=== PATIENT | male | born 1955 | race Caucasian/White ===

== ENCOUNTER 2019-12-09 07:51 | Day surgery (SDC) | payer OTHER ==
[~2019-12-09] VITALS: Ht 175.3 cm; Wt 98.9 kg
[~2019-12-09 07:51] MED LIST: AMLO5 PO; Aspir 8181 MG PO; CARV3.125 PO; COQ-10100 MG PO; DIAZ10 PO; DIAZ5 PO; EZET10 PO; FOLI1 PO; IBUP400 PO; LISI20 PO; MAGNESIUM OXID500 MG PO; METF500 PO; METTREX2.5 PO; NITR.4SL SL; SILD50TA PO
== END 2019-12-09 09:59 | disposition home or self-care (01) ==
LOC: ORSCSDS 07:51
PROVIDERS: Internal Medicine Gastroenterology
PROC: 0DBH8ZX Excision of Cecum, Via Natural or Artificial Opening Endoscopic, Diagnostic (ICD-10-PCS; principal; 2019-12-09 09:15)
PROC: 0DBK8ZX Excision of Ascending Colon, Via Natural or Artificial Opening Endoscopic, Diagnostic (ICD-10-PCS; principal; 2019-12-09 09:15)
DX: Z12.11 Encounter for screening for malignant neoplasm of colon (principal); D12.0 Benign neoplasm of cecum; D12.2 Benign neoplasm of ascending colon; K57.30 Diverticulosis of large intestine without perforation or abscess without bleeding; K64.1 Second degree hemorrhoids; I10 Essential (primary) hypertension; I25.2 Old myocardial infarction; E11.9 Type 2 diabetes mellitus without complications; E78.5 Hyperlipidemia, unspecified; Z79.899 Other long term (current) drug therapy; Z79.84 Long term (current) use of oral hypoglycemic drugs
CPT/HCPCS: 82947; 88305; J2704; J7120

== ENCOUNTER 2023-01-10 06:57 | Day surgery (SDC) | payer MEDICARE ==
[~2023-01-10] VITALS: Ht 177.8 cm; Wt 92.0 kg
[2023-01-10] VITALS (14 sets, daily range): BP systolic 96–172; BP diastolic 67–103
[2023-01-10] MEDS ORDERED: Prednisone10 MG PO (07:22)
[2023-01-10] MEDS ORDERED: ABAT250V IV (07:23)
--- NOTE | 2023-01-10 07:55 | NUR ---
01/10/23 [id number] Sylwia Serrano History, Chart, Medications and Allergies reviewed before start of procedure. 3-LEAD EKG REVIEWED WITH PHYSICIAN PRIOR TO START OF PROCEDURE. MONITOR INTACT WITH CONTINUOUS PULSE OXIMETRY, CONTINUOUS END TITAL CO2, AND INTERMITTENT BLOOD PRESSURE. O2 VIA N/C INTACT THROUGHOUT SEDATION/PROCEDURE. PATIENT DETERMINED TO BE ASA APPROPRIATE FOR PROPOFOL SEDATION PRIOR TO START OF PROCEDURE BY .
--- NOTE | 2023-01-10 08:40 | NUR ---
Patient up to Ambulate independently. Gait steady. History, Chart, Medications and Allergies reviewed before start of procedure. Patient States Post-Procedure ride home has been arranged. Discharged via wheelchair to private car for ride home.
== END 2023-01-10 08:51 | disposition home or self-care (01) ==
LOC: ORSCMMR 06:57 → ORD 08:00 → ORSCMMR 08:51
PROVIDERS: Internal Medicine Gastroenterology
PROC: 0DBC8ZX Excision of Ileocecal Valve, Via Natural or Artificial Opening Endoscopic, Diagnostic (ICD-10-PCS; principal; 2023-01-10 08:00)
DX: Z12.11 Encounter for screening for malignant neoplasm of colon (principal); Z86.010 Personal history of colon polyps; D12.0 Benign neoplasm of cecum; I25.10 Atherosclerotic heart disease of native coronary artery without angina pectoris; M06.9 Rheumatoid arthritis, unspecified; E11.9 Type 2 diabetes mellitus without complications; Z79.84 Long term (current) use of oral hypoglycemic drugs; Z79.899 Other long term (current) drug therapy
CPT/HCPCS: 82947; 88305; J2704; J7120

== ENCOUNTER 2023-08-02 03:58 | Day surgery (SDC) | payer MEDICARE ==
[~2023-08-02 03:58] MED LIST changes: +ABAT250V IV; +Prednisone10 MG PO
== END 2023-08-02 22:42 | disposition home or self-care (01) ==
LOC: WOUND 03:58
DX: T81.31XS Disruption of external operation (surgical) wound, not elsewhere classified, sequela (principal); E11.9 Type 2 diabetes mellitus without complications; I10 Essential (primary) hypertension; Y83.8 Other surgical procedures as the cause of abnormal reaction of the patient, or of later complication, without mention of misadventure at the time of the procedure

== ENCOUNTER 2023-08-09 03:09 | Day surgery (SDC) | payer MEDICARE | END 2023-08-09 23:03 | disposition home or self-care (01) | LOC: WOUND 03:09 | DX: T81.31XA Disruption of external operation (surgical) wound, not elsewhere classified, initial encounter (principal); I10 Essential (primary) hypertension; E11.9 Type 2 diabetes mellitus without complications ==

== ENCOUNTER 2023-08-16 02:10 | Day surgery (SDC) | payer MEDICARE | END 2023-08-16 22:54 | disposition home or self-care (01) | LOC: WOUND 02:10 | DX: T81.31XD Disruption of external operation (surgical) wound, not elsewhere classified, subsequent encounter (principal); I10 Essential (primary) hypertension; E11.9 Type 2 diabetes mellitus without complications; Y83.8 Other surgical procedures as the cause of abnormal reaction of the patient, or of later complication, without mention of misadventure at the time of the procedure | CPT/HCPCS: G0463 ==

== ENCOUNTER 2023-08-23 02:20 | Day surgery (SDC) | payer MEDICARE | END 2023-08-25 22:47 | disposition home or self-care (01) | LOC: WOUND 02:20 | DX: T81.31XA Disruption of external operation (surgical) wound, not elsewhere classified, initial encounter (principal); Z96.641 Presence of right artificial hip joint; I10 Essential (primary) hypertension; E11.9 Type 2 diabetes mellitus without complications ==

== ENCOUNTER 2023-09-06 02:32 | Day surgery (SDC) | payer MEDICARE | END 2023-09-06 22:56 | disposition home or self-care (01) | LOC: WOUND 02:32 | DX: T81.31XD Disruption of external operation (surgical) wound, not elsewhere classified, subsequent encounter (principal); I10 Essential (primary) hypertension; E11.9 Type 2 diabetes mellitus without complications | CPT/HCPCS: G0463 ==

== ENCOUNTER 2023-09-27 05:27 | Day surgery (SDC) | payer MEDICARE | END 2023-09-27 23:09 | disposition home or self-care (01) | LOC: WOUND 05:27 | DX: T81.31XA Disruption of external operation (surgical) wound, not elsewhere classified, initial encounter (principal); E11.622 Type 2 diabetes mellitus with other skin ulcer; I10 Essential (primary) hypertension | CPT/HCPCS: A6213; G0463 ==

== ENCOUNTER 2023-10-11 03:55 | Day surgery (SDC) | payer MEDICARE | END 2023-10-11 22:44 | disposition home or self-care (01) | LOC: WOUND 03:55 | DX: T81.31XA Disruption of external operation (surgical) wound, not elsewhere classified, initial encounter (principal); E11.622 Type 2 diabetes mellitus with other skin ulcer; I10 Essential (primary) hypertension | CPT/HCPCS: A6213; G0463 ==

== ENCOUNTER 2023-11-10 04:18 | Day surgery (SDC) | payer MEDICARE ==
[2023-11-10] MEDS ORDERED: Abatacept/Maltose 1,000 MG in NS 100 ML IV SCH (06:00)
[2023-11-10 09:39] VITALS: BP 134/83
[2023-11-10 10:16] LABS: BASOPHILS ABSOLUTE AUTO 0.08 K/mm3 (0.00-0.23); BASOPHILS PERCENT AUTO 1 % (0-2); EOSINOPHILS ABSOLUTE AUTO 0.12 K/mm3 (0.00-0.68); EOSINOPHILS PERCENT AUTO 2 % (0-6); Hemoglobin 15.2 g/dL (13.5-17.5); IMMATURE GRAN ABSOLUTE AUTO 0.03 K/mm3 (0.00-0.10); IMMATURE GRAN PERCENT AUTO 0 % (0-1); LYMPHOCYTES PERCENT AUTO 31 % (21-46); MONOCYTES ABSOLUTE AUTO 0.57 K/mm3 (0.16-1.47); MONOCYTES PERCENT AUTO 8 % (4-13); Mean Corpuscular HGB 31.5 pg (26.0-34.0); Mean Corpuscular HGB Conc 34.5 g/dL (31.5-36.5); Mean Corpuscular Volume 91 fL (80-100); Mean Platelet Volume 8.9 fL (9.1-12.4); NEUTROPHILS ABSOLUTE AUTO 4.28 K/mm3 (1.96-9.15); NEUTROPHILS PERCENT AUTO 58 % (41-73); Platelet Count 468 K/mm3 (150-400); RDW Coefficient Variation 13.6 % (11.7-14.2); RDW Standard Deviation 45.6 fL (35.1-46.3); Red Blood Cell Count 4.82 M/mm3 (4.30-5.90); White Blood Cell Count 7.38 K/mm3 (4.00-11.30)
[2023-11-10 10:37] LABS: Albumin, Blood 3.3 g/dL (3.4-5.0); Albumin/Globulin Ratio 0.8 (0.8-1.8); Bilirubin, Total 0.4 mg/dL (0.1-1.0); Bun/Creatinine Ratio 21.4 (12.0-20.0); C-REACTIVE PROTEIN, EXT RANGE 1.63 mg/dL (0.000-0.300); Calcium, Blood 9.4 mg/dL (8.5-10.1); Creatinine, Blood 0.66 mg/dL (0.60-1.20); Globulin, Blood 4.3 g/dL (2.2-4.0); Potassium, Blood 3.8 mmol/L (3.5-5.5); Total Protein, Blood 7.6 g/dL (6.4-8.2)
[2023-11-13 20:51] LABS: QUANTIFERON MITOGEN MINUS NIL 1.76 IU/mL; QUANTIFERON NIL 0.01 IU/mL
== END 2023-11-10 10:45 | disposition home or self-care (01) ==
LOC: ATC 04:18
PROVIDERS: Internal Medicine
DX: M05.79 Rheumatoid arthritis with rheumatoid factor of multiple sites without organ or systems involvement (principal); G61.0 Guillain-Barre syndrome; Z79.899 Other long term (current) drug therapy; Z88.2 Allergy status to sulfonamides; Z88.8 Allergy status to other drugs, medicaments and biological substances
CPT/HCPCS: 80053; 85025; 86140; 86480; 96365; J0129-JA

== ENCOUNTER 2023-11-15 04:39 | Day surgery (SDC) | payer MEDICARE | END 2023-11-15 22:55 | disposition home or self-care (01) | LOC: WOUND 04:39 | DX: T81.31XD Disruption of external operation (surgical) wound, not elsewhere classified, subsequent encounter (principal); E11.9 Type 2 diabetes mellitus without complications; I10 Essential (primary) hypertension | CPT/HCPCS: A6213; G0463 ==

== ENCOUNTER 2023-11-22 01:57 | Day surgery (SDC) | payer MEDICARE | END 2023-11-22 23:33 | disposition home or self-care (01) | LOC: WOUND 01:57 | DX: T81.31XA Disruption of external operation (surgical) wound, not elsewhere classified, initial encounter (principal); E11.622 Type 2 diabetes mellitus with other skin ulcer; E03.9 Hypothyroidism, unspecified; I10 Essential (primary) hypertension | CPT/HCPCS: A6213; G0463 ==

== ENCOUNTER 2023-11-24 00:46 | Day surgery (SDC) | payer MEDICARE ==
[~2023-11-24 00:46] MED LIST changes: +Abatacept/Maltose 1,000 MG in NS 100 ML IV SCH
[2023-11-24 08:51] VITALS: BP 116/96
== END 2023-11-24 10:08 | disposition home or self-care (01) ==
LOC: ATC 00:46
DX: M05.79 Rheumatoid arthritis with rheumatoid factor of multiple sites without organ or systems involvement (principal); Z79.899 Other long term (current) drug therapy; Z88.2 Allergy status to sulfonamides; Z88.8 Allergy status to other drugs, medicaments and biological substances
CPT/HCPCS: 96365; J0129-JA

== ENCOUNTER 2023-11-29 01:02 | Day surgery (SDC) | payer MEDICARE ==
[~2023-11-29 01:02] MED LIST changes: -Abatacept/Maltose 1,000 MG in NS 100 ML IV SCH
== END 2023-11-29 23:11 | disposition home or self-care (01) ==
LOC: WOUND 01:02
DX: T81.31XD Disruption of external operation (surgical) wound, not elsewhere classified, subsequent encounter (principal); I10 Essential (primary) hypertension; E11.9 Type 2 diabetes mellitus without complications
CPT/HCPCS: A6213; G0463

== ENCOUNTER 2023-12-06 03:03 | Day surgery (SDC) | payer MEDICARE | END 2023-12-06 23:40 | disposition home or self-care (01) | LOC: WOUND 03:03 | DX: T81.31XA Disruption of external operation (surgical) wound, not elsewhere classified, initial encounter (principal); E11.622 Type 2 diabetes mellitus with other skin ulcer | CPT/HCPCS: A6213; G0463 ==

== ENCOUNTER 2023-12-13 02:54 | Day surgery (SDC) | payer MEDICARE | END 2023-12-13 23:00 | disposition home or self-care (01) | LOC: WOUND 02:54 | DX: T81.31XD Disruption of external operation (surgical) wound, not elsewhere classified, subsequent encounter (principal); I10 Essential (primary) hypertension; E11.9 Type 2 diabetes mellitus without complications; Z96.641 Presence of right artificial hip joint | CPT/HCPCS: A6213; G0463 ==

== ENCOUNTER 2024-01-19 00:56 | Day surgery (SDC) | payer MEDICARE ==
[2024-01-19] MEDS ORDERED: Abatacept/Maltose 1,000 MG in NS 100 ML IV SCH (06:00)
[2024-01-19 08:25] VITALS: BP 140/87
== END 2024-01-19 09:35 | disposition home or self-care (01) ==
LOC: ATC 00:56
DX: M05.79 Rheumatoid arthritis with rheumatoid factor of multiple sites without organ or systems involvement (principal); G61.0 Guillain-Barre syndrome; E78.00 Pure hypercholesterolemia, unspecified; E11.9 Type 2 diabetes mellitus without complications; I25.10 Atherosclerotic heart disease of native coronary artery without angina pectoris; F17.200 Nicotine dependence, unspecified, uncomplicated; Z79.84 Long term (current) use of oral hypoglycemic drugs; Z79.899 Other long term (current) drug therapy; Z88.0 Allergy status to penicillin; Z88.8 Allergy status to other drugs, medicaments and biological substances
CPT/HCPCS: 96365; J0129-JA

== ENCOUNTER 2024-02-16 07:17 | Day surgery (SDC) | payer MEDICARE ==
[~2024-02-16 07:17] MED LIST changes: +Abatacept/Maltose 1,000 MG in NS 100 ML IV SCH
[2024-02-16 09:35] VITALS: BP 130/84
[2024-02-16 10:05] LABS: BASOPHILS ABSOLUTE AUTO 0.07 K/mm3 (0.00-0.23); BASOPHILS PERCENT AUTO 1 % (0-2); EOSINOPHILS ABSOLUTE AUTO 0.11 K/mm3 (0.00-0.68); EOSINOPHILS PERCENT AUTO 2 % (0-6); Hematocrit 46.1 % (37.0-53.0); Hemoglobin 15.9 g/dL (13.5-17.5); IMMATURE GRAN ABSOLUTE AUTO 0.01 K/mm3 (0.00-0.10); IMMATURE GRAN PERCENT AUTO 0 % (0-1); LYMPHOCYTES ABSOLUTE AUTO 1.82 K/mm3 (0.84-5.20); LYMPHOCYTES PERCENT AUTO 27 % (21-46); MONOCYTES ABSOLUTE AUTO 0.83 K/mm3 (0.16-1.47); MONOCYTES PERCENT AUTO 12 % (4-13); Mean Corpuscular HGB 32.3 pg (26.0-34.0); Mean Corpuscular HGB Conc 34.5 g/dL (31.5-36.5); Mean Corpuscular Volume 94 fL (80-100); NEUTROPHILS ABSOLUTE AUTO 3.89 K/mm3 (1.96-9.15); NEUTROPHILS PERCENT AUTO 58 % (41-73); Platelet Count 371 K/mm3 (150-400); RDW Coefficient Variation 12.9 % (11.7-14.2); RDW Standard Deviation 44.2 fL (35.1-46.3); Red Blood Cell Count 4.93 M/mm3 (4.30-5.90); White Blood Cell Count 6.73 K/mm3 (4.00-11.30)
[2024-02-16 10:49] LABS: Albumin, Blood 3.5 g/dL (3.4-5.0); Albumin/Globulin Ratio 0.9 (0.8-1.8); Bilirubin, Total 0.7 mg/dL (0.1-1.0); Bun/Creatinine Ratio 35.5 (12.0-20.0); C-REACTIVE PROTEIN, EXT RANGE 0.548 mg/dL (0.000-0.300); Calcium, Blood 9.4 mg/dL (8.5-10.1); Creatinine, Blood 0.68 mg/dL (0.60-1.20); Globulin, Blood 4.1 g/dL (2.2-4.0); Total Protein, Blood 7.6 g/dL (6.4-8.2)
--- NOTE | 2024-02-16 12:09 | NUR ---
Lab results from today faxed to Dr. Aly's office.
== END 2024-02-16 10:31 | disposition home or self-care (01) ==
LOC: ATC 07:17
PROVIDERS: Internal Medicine
DX: M05.79 Rheumatoid arthritis with rheumatoid factor of multiple sites without organ or systems involvement (principal); G61.0 Guillain-Barre syndrome; E11.9 Type 2 diabetes mellitus without complications; I25.10 Atherosclerotic heart disease of native coronary artery without angina pectoris; E78.00 Pure hypercholesterolemia, unspecified; F17.200 Nicotine dependence, unspecified, uncomplicated; Z79.84 Long term (current) use of oral hypoglycemic drugs; Z79.899 Other long term (current) drug therapy; Z79.1 Long term (current) use of non-steroidal anti-inflammatories (NSAID); Z88.2 Allergy status to sulfonamides; Z88.8 Allergy status to other drugs, medicaments and biological substances
CPT/HCPCS: 80053; 85025; 86140; 96365; J0129-JA

== ENCOUNTER 2024-03-15 03:32 | Day surgery (SDC) | payer MEDICARE ==
[~2024-03-15 03:32] MED LIST changes: -Abatacept/Maltose 1,000 MG in NS 100 ML IV SCH
[2024-03-15] MEDS ORDERED: Abatacept/Maltose 1,000 MG in NS 100 ML IV SCH (06:00)
[2024-03-15 08:48] VITALS: BP 137/84
== END 2024-03-15 10:18 | disposition home or self-care (01) ==
LOC: ATC 03:32
DX: M05.79 Rheumatoid arthritis with rheumatoid factor of multiple sites without organ or systems involvement (principal); I25.10 Atherosclerotic heart disease of native coronary artery without angina pectoris; E11.9 Type 2 diabetes mellitus without complications; E78.00 Pure hypercholesterolemia, unspecified; F17.200 Nicotine dependence, unspecified, uncomplicated; Z79.84 Long term (current) use of oral hypoglycemic drugs; Z79.1 Long term (current) use of non-steroidal anti-inflammatories (NSAID); Z79.52 Long term (current) use of systemic steroids; Z79.899 Other long term (current) drug therapy; Z88.2 Allergy status to sulfonamides; Z88.8 Allergy status to other drugs, medicaments and biological substances
CPT/HCPCS: 96365; J0129-JA

== ENCOUNTER 2024-04-12 04:50 | Day surgery (SDC) | payer MEDICARE ==
[2024-04-12] MEDS ORDERED: Abatacept/Maltose 1,000 MG in NS 100 ML IV SCH (06:00)
[2024-04-12 07:45] VITALS: BP 160/93
== END 2024-04-12 09:01 | disposition home or self-care (01) ==
LOC: ATC 04:50
DX: M05.79 Rheumatoid arthritis with rheumatoid factor of multiple sites without organ or systems involvement (principal); I25.10 Atherosclerotic heart disease of native coronary artery without angina pectoris; E11.9 Type 2 diabetes mellitus without complications; E78.00 Pure hypercholesterolemia, unspecified; Z79.84 Long term (current) use of oral hypoglycemic drugs; Z79.899 Other long term (current) drug therapy; Z88.2 Allergy status to sulfonamides; Z88.8 Allergy status to other drugs, medicaments and biological substances
CPT/HCPCS: 96365; J0129-JA

== ENCOUNTER 2024-05-24 02:57 | Day surgery (SDC) | payer MEDICARE ==
[~2024-05-24 02:57] MED LIST changes: +Abatacept/Maltose 750 MG in NS 100 ML IV SCH
[2024-05-24 07:44] VITALS: BP 145/88
[2024-05-24 08:18] LABS: BASOPHILS ABSOLUTE AUTO 0.06 K/mm3 (0.00-0.23); BASOPHILS PERCENT AUTO 1 % (0-2); EOSINOPHILS ABSOLUTE AUTO 0.17 K/mm3 (0.00-0.68); EOSINOPHILS PERCENT AUTO 2 % (0-6); Hematocrit 44.3 % (37.0-53.0); Hemoglobin 15.1 g/dL (13.5-17.5); IMMATURE GRAN ABSOLUTE AUTO 0.04 K/mm3 (0.00-0.10); IMMATURE GRAN PERCENT AUTO 1 % (0-1); LYMPHOCYTES ABSOLUTE AUTO 2.23 K/mm3 (0.84-5.20); LYMPHOCYTES PERCENT AUTO 28 % (21-46); MONOCYTES ABSOLUTE AUTO 0.84 K/mm3 (0.16-1.47); MONOCYTES PERCENT AUTO 11 % (4-13); Mean Corpuscular HGB 31.5 pg (26.0-34.0); Mean Corpuscular HGB Conc 34.1 g/dL (31.5-36.5); Mean Corpuscular Volume 92 fL (80-100); NEUTROPHILS ABSOLUTE AUTO 4.64 K/mm3 (1.96-9.15); NEUTROPHILS PERCENT AUTO 58 % (41-73); Platelet Count 414 K/mm3 (150-400); RDW Standard Deviation 44.2 fL (35.1-46.3); White Blood Cell Count 7.98 K/mm3 (4.00-11.30)
[2024-05-24 08:39] LABS: C-REACTIVE PROTEIN, EXT RANGE 1.38 mg/dL (0.000-0.300)
[2024-05-24 08:42] LABS: Albumin, Blood 3.6 g/dL (3.4-5.0); Albumin/Globulin Ratio 0.9 (0.8-1.8); Bilirubin, Total 0.3 mg/dL (0.1-1.0); Bun/Creatinine Ratio 33.4 (12.0-20.0); Creatinine, Blood 0.54 mg/dL (0.60-1.20); Globulin, Blood 3.9 g/dL (2.2-4.0); Potassium, Blood 3.7 mmol/L (3.5-5.5); Total Protein, Blood 7.5 g/dL (6.4-8.2)
== END 2024-05-24 08:49 | disposition home or self-care (01) ==
LOC: ATC 02:57
PROVIDERS: Internal Medicine
DX: M05.79 Rheumatoid arthritis with rheumatoid factor of multiple sites without organ or systems involvement (principal); I25.10 Atherosclerotic heart disease of native coronary artery without angina pectoris; E11.9 Type 2 diabetes mellitus without complications; E78.5 Hyperlipidemia, unspecified; Z88.5 Allergy status to narcotic agent; Z88.2 Allergy status to sulfonamides; Z79.899 Other long term (current) drug therapy
CPT/HCPCS: 80053; 85025; 86140; 96365; J0129-JA

== ENCOUNTER 2024-06-20 02:29 | Day surgery (SDC) | payer MEDICARE ==
[~2024-06-20 02:29] MED LIST changes: -Abatacept/Maltose 750 MG in NS 100 ML IV SCH
[2024-06-20] MEDS ORDERED: Abatacept/Maltose 750 MG in NS 100 ML IV SCH (06:00)
[2024-06-20 08:26] VITALS: BP 139/93
== END 2024-06-20 09:25 | disposition home or self-care (01) ==
LOC: ATC 02:29
DX: M05.79 Rheumatoid arthritis with rheumatoid factor of multiple sites without organ or systems involvement (principal)
CPT/HCPCS: 96365; J0129-JA

== ENCOUNTER 2024-08-26 01:36 | Day surgery (SDC) | payer MEDICARE ==
[2024-08-26] VITALS (9 sets, daily range): BP systolic 123–153; BP diastolic 80–91
[2024-08-26] MEDS ORDERED: RITUXIMAB ABBS IV SCH (06:00)
[2024-08-26] MEDS ORDERED: NS IV SCH (06:00)
[2024-08-26] MEDS ORDERED: TRUXIMA10 MG/1 ML IV (07:20)
[2024-08-26 07:55] LABS: BASOPHILS ABSOLUTE AUTO 0.05 K/mm3 (0.00-0.23); BASOPHILS PERCENT AUTO 1 % (0-2); EOSINOPHILS ABSOLUTE AUTO 0.11 K/mm3 (0.00-0.68); EOSINOPHILS PERCENT AUTO 1 % (0-6); Hematocrit 43.9 % (37.0-53.0); Hemoglobin 14.8 g/dL (13.5-17.5); IMMATURE GRAN ABSOLUTE AUTO 0.04 K/mm3 (0.00-0.10); IMMATURE GRAN PERCENT AUTO 0 % (0-1); LYMPHOCYTES ABSOLUTE AUTO 1.69 K/mm3 (0.84-5.20); LYMPHOCYTES PERCENT AUTO 19 % (21-46); MONOCYTES ABSOLUTE AUTO 0.82 K/mm3 (0.16-1.47); MONOCYTES PERCENT AUTO 9 % (4-13); Mean Corpuscular HGB Conc 33.7 g/dL (31.5-36.5); Mean Corpuscular Volume 93 fL (80-100); NEUTROPHILS ABSOLUTE AUTO 6.39 K/mm3 (1.96-9.15); NEUTROPHILS PERCENT AUTO 70 % (41-73); NRBC ABSOLUTE 0.00 K/mm3 (0.00-0.02); NRBC Auto 0.0 /100 WBC (0.0-0.2); Platelet Count 365 K/mm3 (150-400); RDW Coefficient Variation 13.8 % (11.7-14.2); RDW Standard Deviation 47.4 fL (35.1-46.3)
[2024-08-26 08:16] LABS: Alanine Aminotransfer (ALT/SGP 55.0 U/L (12-78); Albumin, Blood 3.4 g/dL (3.4-5.0); Albumin/Globulin Ratio 0.8 (0.8-1.8); Anion Gap 10.0 mmol/L (3-11); Aspartate Aminotrans (AST/SGOT 23.0 U/L (12-37); Bilirubin, Total 0.6 mg/dL (0.1-1.0); Blood Urea Nitrogen 21.0 mg/dL (8-24); C-REACTIVE PROTEIN, EXT RANGE 1.43 mg/dL (0.000-0.300); CO2, Blood 24.0 mmol/L (21-32); Calcium, Blood 8.9 mg/dL (8.5-10.1); Chloride, Blood 108.0 mmol/L (98-108); Creatinine, Blood 0.57 mg/dL (0.60-1.20); Globulin, Blood 4.1 g/dL (2.2-4.0); Glucose, Blood 182.0 mg/dL (70-99); Potassium, Blood 3.7 mmol/L (3.5-5.5); Sodium, Blood 138.0 mmol/L (136-145); Total Protein, Blood 7.5 g/dL (6.4-8.2)
--- NOTE | 2024-08-26 15:17 | NUR ---
Lab results and treatment record from pt's visit today faxed to Dr. Aly's office.
== END 2024-08-26 12:35 | disposition home or self-care (01) ==
LOC: ATC 01:36
PROVIDERS: Internal Medicine
DX: M05.79 Rheumatoid arthritis with rheumatoid factor of multiple sites without organ or systems involvement (principal); I25.10 Atherosclerotic heart disease of native coronary artery without angina pectoris; E11.9 Type 2 diabetes mellitus without complications; G61.0 Guillain-Barre syndrome; E78.5 Hyperlipidemia, unspecified; Z87.891 Personal history of nicotine dependence; Z88.5 Allergy status to narcotic agent; Z88.2 Allergy status to sulfonamides; Z88.8 Allergy status to other drugs, medicaments and biological substances; Z79.899 Other long term (current) drug therapy; Z79.84 Long term (current) use of oral hypoglycemic drugs
CPT/HCPCS: 80053; 85025; 86140; 96375; 96413; 96415; A9270; J2919; J7050; Q5115

== ENCOUNTER 2024-09-09 00:37 | Day surgery (SDC) | payer MEDICARE ==
[2024-09-09] VITALS (8 sets, daily range): BP systolic 121–159; BP diastolic 78–96
[~2024-09-09 00:37] MED LIST changes: +TRUXIMA10 MG/1 ML IV
[2024-09-09] MEDS ORDERED: RITUXIMAB ABBS IV SCH (06:00)
[2024-09-09] MEDS ORDERED: NS IV SCH (06:00)
== END 2024-09-09 11:03 | disposition home or self-care (01) ==
LOC: ATC 00:37
DX: M05.79 Rheumatoid arthritis with rheumatoid factor of multiple sites without organ or systems involvement (principal); M17.0 Bilateral primary osteoarthritis of knee; I25.10 Atherosclerotic heart disease of native coronary artery without angina pectoris; E11.9 Type 2 diabetes mellitus without complications; G61.0 Guillain-Barre syndrome; E78.5 Hyperlipidemia, unspecified; Z87.891 Personal history of nicotine dependence; Z79.1 Long term (current) use of non-steroidal anti-inflammatories (NSAID); Z79.84 Long term (current) use of oral hypoglycemic drugs; Z79.899 Other long term (current) drug therapy; Z88.2 Allergy status to sulfonamides; Z88.5 Allergy status to narcotic agent; Z88.8 Allergy status to other drugs, medicaments and biological substances; Z96.643 Presence of artificial hip joint, bilateral
CPT/HCPCS: 96375; 96413; 96415; A9270; J2919; J7050; Q5115